=== PATIENT | male | born 1975 | race Caucasian/White ===

== ENCOUNTER → 2018-10-07 | Emergency (ER) | payer BC ==
[~2018-10-07] VITALS: Ht 182.9 cm; Wt 85.7 kg
[~2018-10-07] MED LIST: IV NS 0.9% 1,000 ML BAG IV ONE
--- NOTE | 2018-10-07 13:00 | NUR ---
BIB [place], WAS FOUND ALTERED [facility], TO ER BED 9, PATIENT UNRESPONSIVE, HOOKED TO MATH PROFESSOR, VSS, CHANGED TO GOWN, PROVIDED W WARM BLANKET, PATIENT NOTED W R EJ 20G AND LFA 18G, PATENT, DR BOTELLO AT BEDSIDE
--- NOTE | 2018-10-07 13:07 | NUR ---
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
[2018-10-07 13:12] LABS: BASOPHILS % (AUTO) 0.4 % (0.0-2.0); EOSINOPHILS % (AUTO) 0.7 % (0.0-6.0); HEMATOCRIT 46 % (39-51); HEMOGLOBIN 15.7 g/dL (13.5-17.5); LYMPHOCYTES # (AUTO) 2.3 /CMM (0.8-4.8); LYMPHOCYTES % (AUTO) 26.6 % (20.0-44.0); MEAN CORPUSCULAR HGB CONC 34 g/dl (31.0-36.0); MEAN CORPUSCULAR VOLUME 91 fL (80-96); MONOCYTES # (AUTO) 0.7 /CMM (0.1-1.30); MONOCYTES % (AUTO) 7.5 % (2.0-12.0); NEUTROPHILS # (AUTO) 5.6 /CMM (1.8-8.9); NEUTROPHILS % (AUTO) 64.8 % (43.0-81.0); PLATELET COUNT (AUTO) 287 /CMM (150-450); RED BLOOD CELL COUNT(AUTO) 5.05 MIL/uL (4.5-6.0); WHITE BLOOD COUNT (AUTO) 8.7 K/uL (4.3-11.0)
[2018-10-07 13:19] LABS: CALCIUM, SERUM 9.3 mg/dL (8.5-10.1); CARBON DIOXIDE 31 mmol/L (21-32); CHLORIDE 104 mmol/L (98-107); GLUCOSE 109 mg/dL (74-106); SODIUM SERUM 141 mmol/L (136-145); UREA NITROGEN, BLOOD 17 mg/dL (7-18)
[2018-10-07 13:32] LABS: ALANINE AMINOTRANSFERASE 38 U/L (12-78); ALBUMIN 3.9 g/dL (3.4-5.0); ALKALINE PHOSPHATASE 124 U/L (46-116); ASPARTATE AMINOTRANSFERASE 26 U/L (15-37); BILIRUBIN,DIRECT 0.1 mg/dL (0.0-0.2); BILIRUBIN,TOTAL 0.6 mg/dL (0.2-1.0); TOTAL PROTEIN, SERUM 6.8 g/dL (6.4-8.2)
[2018-10-07 13:33] LABS: ACETAMINOPHEN 0 ug/ml (10-30); ALCOHOL, BLOOD < 3 mg/dL (0-0); SALICYLATE 0.6 mg/dL (2.8-20.0)
--- NOTE | 2018-10-07 14:57 | NUR ---
PATIENT IN BED, FRIENDS AT BEDSIDE, UNRESPONSIVE TO PAINFUL STUIMULI, HOOKED TO MONITOR, VSS, KEPT SAFE AND COMFORTABLE, WILL CONTINUE TO MONITOR ACCORDINGLY
--- NOTE | 2018-10-07 15:06 | NUR ---
CLINICAL RESOURCE DIRECTOR: DON FALK [phone] [place] [phone]
--- NOTE | 2018-10-07 17:10 | NUR ---
PATIENT IN BED ASLEEP, UNRESPONSIVE TO PAINFUL STIMULI, HOOKED TO MONITOR, VSS, WILL CONTINUE TO MONITOR ACCORDINGLY, KEPT SAFE AND COMFORTABLE.
--- NOTE | 2018-10-07 18:42 | NUR ---
PATIENT IN BED ASLEEP, UNRESPONSIVE TO PAINFUL STIMULI, HOOKED TO MONITOR, VSS, WILL CONTINUE TO MONITOR ACCORDINGLY, KEPT SAFE AND COMFORTABLE.
--- NOTE | 2018-10-07 22:38 | NUR ---
Patient is resting in bed with eyes closed. PT RESPONSIVE TO PAINFUL STIMULI. VSS. WILL CONTINUE TO MONITOR.
--- NOTE | 2018-10-07 22:38 | NUR ---
Patient is resting comfortably in bed with eyes closed. Easily aroused. VSS.
--- NOTE | 2018-10-07 22:38 | NUR ---
Ceasar candelario in [facility] - 10/07/18 at 2238 by FÁTIMA Patient is resting comfortably in bed with eyes closed. Easily aroused. VSS.
--- NOTE | 2018-10-08 00:04 | NUR ---
Patient is resting comfortably in bed with eyes closed. Easily aroused. VSS.
--- NOTE | 2018-10-08 04:51 | NUR ---
PT AOX2. ABLE TO VERBALIZE NEEDS. GIVEN ORANGE JUICE.
--- NOTE | 2018-10-08 06:29 | NUR ---
Ceasar candelario in [facility] - 10/08/18 at 0639 by FÁTIMA [phone] YESICA
--- NOTE | 2018-10-08 14:14 | NUR ---
Ceasar candelario in [facility] - 10/08/18 at 1415 by CASSY asif damian
--- NOTE | 2018-10-08 14:16 | NUR ---
gait is steady PT. VERBALIZED UNDERSTANDING OF AFTERCARE INSTRUCTIONS.Patient discharged to home in stable condition. Written and verbal after care instructions given. Patient verbalizes understanding of instruction.
[2018-10-08 14:40] VITALS: BP 158/83
== END | disposition home or self-care (01) ==
LOC: ER 13:00
DX: R41.82 Altered mental status, unspecified (principal); R94.31 Abnormal electrocardiogram [ECG] [EKG]
CPT/HCPCS: 80048; 80076; 80307; 80329; 85025; 93005; 96360; 99284; G0480; J7030; 36415